=== PATIENT | male | born 1995 | race Caucasian/White ===

== ENCOUNTER 2020-11-24 18:06 | Emergency (ER) | payer OTHER ==
--- NOTE | 2020-11-24 19:06 | RAD ---
EXAM: Anterior views of the right humerus HISTORY: right arm pain COMPARISON: None FINDINGS: Anterior views of the right humerus shows no evidence of acute fracture or dislocation. No degenerative changes are seen. No soft tissue swelling is present. The visualized right thorax is unremarkable. IMPRESSION: No evidence of acute osseous abnormality.
[2020-11-24] MEDS ORDERED: HYDROcodone/Acetaminophen 5/325 mg Tablet ONE (19:14)
== END 2020-11-24 19:25 | disposition home or self-care (01) ==
LOC: NAV ERS 18:06
DX: S40.021A Contusion of right upper arm, initial encounter (principal); W22.8XXA Striking against or struck by other objects, initial encounter